=== PATIENT | male | born 1945 | race Caucasian/White ===

== ENCOUNTER 2018-05-04 10:30 | Observation (INO) ==
[2018-05-04] MEDS ORDERED: S2 RACEPINEPHRINE 2.25% ONE (11:09)
[2018-05-04] MEDS ORDERED: SOLU-MEDROL ONE (11:10)
[2018-05-04] MEDS ORDERED: ZANTAC IV ONE (11:14)
[2018-05-04] MEDS ORDERED: S2 RACEPINEPHRINE 2.25% INH ONE (11:15)
[2018-05-04] MEDS ORDERED: NS NEB INH SCH (11:15)
[2018-05-04] MEDS ORDERED: SOLU-MEDROL IV ONE (11:17)
[2018-05-04] MEDS ORDERED: CLARITIN PO ONE (11:17)
[2018-05-04] MEDS ORDERED: ZANTAC 50 MG in NS 50 ML IV ONE (11:30)
--- NOTE | 2018-05-04 14:26 | PROVIDER DOCUMENTATION ---
This chart was entered by Millie Streeter Scribe, acting as scribe for Willie Mason MD. HPI-General Adult - General Chief Complaint: Tongue Swelling Stated Complaint: ALLERGIC REACTION Time Seen by Provider: 05/04/18 10:50 Source: patient Allergies/Adverse Reactions: Patient Allergies Allergy/AdvReac Type Severity Reaction Status Date / Time metoclopramide HCl * Allergy Unknown ANAPHYLAXIS Verified 04/09/18 09:14 [From Reglan] KATHERIN Inhibitors AdvReac Intermediate ANGIOEDMA Verified 04/09/18 09:14 epinephrine AdvReac Unknown Verified 04/09/18 09:14 Home Medications: Home Medication List Medication Instructions Recorded Confirmed Last Taken Type Aspirin 81 mg PO QPM 12/28/12 04/09/18 04/07/18 08:00 History Carvedilol [Coreg] 12.5 mg PO BID 12/28/12 04/09/18 04/14/18 04:30 History Glipizide [Glucotrol] 10 mg PO BID 12/28/12 04/09/18 04/13/18 21:00 History Pravastatin Sodium [Pravachol] 80 mg PO QHS 12/28/12 04/09/18 04/13/18 21:00 History Chlorthalidone 25 mg PO QAM 08/10/14 04/09/18 04/13/18 08:00 History Metformin [Glucophage] 500 mg PO BID 08/10/14 04/09/18 04/13/18 21:00 History Sitagliptin Phosphate [Januvia] 100 mg PO QAM 01/14/18 04/09/18 04/13/18 08:00 History Hydrocodone/APAP 10 mg/325 mg 1 each PO Q4H PRN #12 tablet 04/14/18 Unknown Rx [[place]-10] Loratadine [Claritin] 10 mg PO BID #60 tab 05/04/18 Unknown Rx Prednisone 20 mg PO BID #10 tab 05/04/18 Unknown Rx - History of Present Illness -Gen Adult Nature of Presenting Problems: 73yom with hx diabetes Type 2, HTN c/o possible allergic reaction including sore throat, difficulty swallowing, swollen tongue, and swollen lips since last night that has worsened this morning. He reports pain of 2/10. The patient's reports he recently had surgery for prostate cancer. He denies fever, chills, nausea, vomiting, diarrhea, cp, and sob. The patient's is at bedside. Location of Pain/Injury: reports: other (possible allergic reaction including sore throat, difficulty swallowing, swollen tongue, and swollen lips) Pain Radiation: reports: no radiation Quality of Pain: reports: other ("painful") Severity: reports: mild Onset/Duration: reports: this morning (worsening), last night Timing: reports: still present, constant Context/Activities at Onset: reports: none Modifying Factors: improves with: nothing Associated Symptoms: denies: chest pain, fever/chills, nausea, shortness of breath, vomiting Similar Symptoms Previously?: No Recently seen or treated by another doctor?: No Review of Systems - Adult - REVIEW OF SYSTEMS - ADULT Constitutional: denies: chills, fever Eyes: denies: discharge, dry eyes Ears, Nose, Mouth & Throat: reports: other (possible allergic reaction including sore throat, difficulty swallowing, swollen tongue, and swollen lips) . denies: ear discharge, ear pain Cardiovascular: denies: chest pain, palpitations Respiratory: denies: cough, shortness of breath Gastrointestinal: denies: abdominal pain, diarrhea, nausea, vomiting Genitourinary: denies: dysuria, hematuria Musculoskeletal: denies: back pain, muscle aches, muscle weakness Integumentary: reports: no symptoms reported Neurological: denies: dizziness/vertigo, headache/migraines Psychiatric: reports: no symptoms reported Endocrine: reports: no symptoms reported Hematologic/Lymphatic: reports: no symptoms reported Allergic/Immunologic: reports: no symptoms reported All Other Systems: Reviewed and Negative Past History - Adult - PAST MEDICAL HISTORY-ADULT Review of Records: reports: Old Records Reviewed, Nursing Assessment Review, Medications Reviewed Cardiovascular: reports: HTN Endocrine/Immune: reports: Diabetes Diabetes Type: Type 2 Additional History: prostate cancer - PRIOR SURGERIES/PROCEDURES Surgical/Procedure History: reports: other (prostate) - IMMUNIZATION STATUS Childhood Immunizations: See Nurse Assessment Flu Vaccine: See Nurse Assessment - FAMILY HISTORY Family History: reviewed, not pertinent - SOCIAL HISTORY Smoking: other (former) Substance Use: denies Living Situation: family Physical Exam-General - PHYSICAL EXAM-ADULT Initial Vital Signs Reviewed: Yes - CONSTITUTIONAL General Appearance: alert, mild distress, other (difficulty speaking due to tongue swelling) - EYES Eyes: PERRL/EOMI, pink conjunctivae - HEAD, EARS, NOSE, MOUTH & THROAT HENMT: moist mucous membranes, angioedema, other (swollen tongue and swollen lips) - NECK Neck: non-tender, supple - RESPIRATORY Respiratory: lungs clear, normal breath sounds. negative: wheezing - CARDIOVASCULAR Cardiovascular: regular rate, rhythm, no murmur - GASTROINTESTINAL (ABDOMEN) Abdominal Exam: non tender, soft - MUSCULOSKELETAL Extremity: non-tender, no pedal edema - SKIN Integumentary: normal color, warm/dry - NEUROLOGIC Neurologic: grossly normal, no motor/sensory deficits - PSYCHIATRIC Psych/Mental Status: normal mood/affect, normal thought content, normal thought process, oriented x 3 Progress - PLAN OF CARE/RESULTS Progress/Plan/Lab Results: Vital Signs - 8 hr 05/04/18 10:42 Pulse Rate 77 Respiratory Rate 18 Blood Pressure 156/89 O2 Sat by Pulse Oximetry 100 - REASSESSMENT Reassessment #1 Time Reassessed: 14:19 Status: improving (Swelling seemss to be resolving and pt can now swollow and speak fairly clealy) Departure - Departure Date of Disposition Decision: 05/04/18 Time of Disposition Decision: 14:20 DIAGNOSIS: Idiopathic angioedema Qualifiers: Encounter type: initial encounter Qualified Code(s): T78.3XXA - Angioneurotic edema, initial encounter Disposition: HOME 01 Certified Medical Emergency: Emergent Condition: Stable Additional Freetext Instructions: ED Follow Up Instructions: You have been treated by a care provider in the Emergency Department. These instructions are being provided to you so you can have an understanding of how to care for yourself upon discharge. Upon discharge from the Emergency Department, you are responsible for making arrangements for follow-up care by a physician of your choice. Take all prescribed medications as directed. Return to the Emergency Department immediately for any new or worsening symptoms. You may call the Physician Referral phone number at [phone] to obtain a list of Physicians who are taking new patients. Prescriptions: Loratadine [Claritin] 10 mg PO BID #60 tab Prednisone 20 mg PO BID #10 tab Referrals and Follow-Ups: None,PCP [Primary Care Provider] - - Critical Care Note This patient required my direct & personal management of CC.: Yes Total Time (mins): 35 Critical Care Statement: This patient required my direct personal management to treat or rule out processes, the absence of which, could potentiallly result in sudden, clinically significant life or limb threatening deterioration. Attestation - Physician/ [facility] Attestation Patient care was provided by Advanced Practice Provider:: No The physician spent face to face time with patient:: Yes Advanced Practice Provider documentation review:: Supervising physician onsite and consulted in the evaluation and care of this patient. The physician did have a face to face encounter with the patient. This chart was documented by the indicated scribe, (Millie Streeter Scribe) and accurately reflects the services I performed and decisions made by me, Willie Mason MD, as attested by the provider's signature.
--- NOTE | 2018-05-04 16:49 | HISTORY AND PHYSICAL ---
HISTORY OF PRESENT ILLNESS: Mr. England was admitted on 05/04/2018. Apparently, he had robotic prostatectomy on Saturday, today is Saturday. I think he had an IV in the right hand. His right hand started itching. They gave him two medicines. He said there was some little streak that was going up his arm and so they put him on Bactrim Double Strength 1 twice a day and they gave him diclofenac to take 3 times a day. He started to have some swelling early this morning in his tongue and in his mouth. He is having trouble swallowing. They gave him an epi subcu. We gave him some Zantac and Solu-Medrol. Swelling is much better, but still having trouble swallowing and his tummy is still swollen. No urticaria or hives or rash appreciated. No fever or chills. He has had episodes of tongue swelling he said about 4 different times over the last 20 years. They have never really found any culprit. Initially, they wondered about lisinopril, but I think he has been off lisinopril for a long time. PAST MEDICAL HISTORY: He has history of asthma, history of benign prostatic hypertrophy, recently prostate cancer status post robotic prostatectomy, history of COPD, diabetes, gastroesophageal reflux disease, coronary artery disease, he is status post CABG 20 years ago, history of hypercholesterolemia, history of ureteral listhesis on the left or kidney stones. SURGICAL HISTORY: Status post CABG and then radical robotic prostatectomy done on Saturday. MEDICATIONS: He is on aspirin, Coreg, glipizide, metformin. ALLERGIES: He is not aware of anything he is allergic to. He did list epinephrine, I think that is because I have used it before and he was having trouble, but I do not know if he has a true allergic reaction. They did give it to him today. History of allergy to Reglan. FAMILY HISTORY: No significant family history that we are aware of. I think there are some family members with diabetes. SOCIAL HISTORY: He quit smoking 20 years ago. alcohol quit about 20 years ago. He never drank much. REVIEW OF SYSTEMS: No fever or chills.HEENT: Tongue swelling. Throat feels like it is swelling. No lymphadenopathy. No urticaria. No mucosal lesions. No change in visual or hearing acuity. Neck: Has been supple, no pain. No cervical or supraclavicular adenopathy. No irritation to the conjunctiva. Respiratory: No increased work of breathing or dyspnea. Cardiovascular: No chest pain or tachy palpitation. Gastrointestinal / Genitourinary: Unremarkable. Musculoskeletal/Neurologic: No significant complaints. PHYSICAL EXAMINATION: VITAL SIGNS: Afebrile. Pulse 77, respirations 20, blood pressure 156/89. He is on 2 L nasal cannula. Height 5 feet 9 inches. Weight 175 pounds. HEENT: Pupils are equal and round. Tongue is still a little bit swollen. Oropharynx with some edema. No stridor. Moving air fine. Having trouble swallowing. LUNGS: Clear in all lung vazquez. CARDIOVASCULAR: Regular rhythm and rate without murmur or S3. ABDOMEN: Soft. SKIN: Warm and dry. ASSESSMENT AND PLAN: 1. Angioedema. Not sure what triggered this. Of course, they had given him some Bactroban and some diclofenac, so we will hold those. He has received Zantac 50 mg IV, Methylprednisone. He got some epinephrine 2.25%. Give him some IV fluids, give him some Solu-Medrol. I will probably give him 80 mg of Solu-Medrol q.8. We will check pattern sugars. He does have diabetes. and we will give him some Zyrtec p.o. 10 mg now and then daily and use Benadryl if needed. 2. Diabetes mellitus type 2. We will check pattern of sugars. 3. History of coronary artery disease status post CABG 20 years ago. 4. Recent robotic prostatectomy. I will check some lab in the morning, thyroid, B12 and folate and recheck his chemistries, magnesium and give him fluids of normal saline, run it in at 85 mL an hour. cc: MD Michael Elam MD
[2018-05-04 17:12] LABS: BASO# 0.03 X1000 (0.0-0.2); BASO% 0.2 % (0.0-0.8); EOS# 0.89 X1000 (0.0-0.7); EOS% 6.4 % (0.0-10.0); HEMATOCRIT 47.1 % (42.0-52.0); HEMOGLOBIN 15.7 g/dL (14.0-18.0); IMM GRAN# 0.07 X1000 (0.0-0.04); IMM GRAN% 0.5 % (0.0-0.5); LYMPH# 1.91 X1000 (1.2-3.4); LYMPH% 13.7 % (20.5-51.1); MCH 28.6 PG (27-31); MCHC 33.3 g/dL (33-37); MCV 85.9 FL (81-99); MONO# 0.89 X1000 (0.11-0.59); MONO% 6.4 % (1.7-9.3); MPV 9.8 FL (7.4-10.4); NEUT% 72.8 % (42.2-75.2); PLT 570 X1000 (130-400); RBC 5.48 XMIL (4.7-6.1); RDW 13.9 % (11.5-14.5); WBC 13.99 X1000 (4.8-10.8)
[2018-05-04 17:49] LABS: ALB/GLOB RATIO 1.1; CALCIUM 9.3 mg/dL (8.8-10.2); CREATININE 3.3 mg/dL (0.7-1.2); TOTAL BILIRUBIN 0.27 mg/dL (0.20-1.00); TOTAL PROTEIN 7.5 g/dL (6.3-8.3)
[2018-05-04] MEDS ORDERED: ZOFRAN IV PRN (19:06)
[2018-05-04] MEDS ORDERED: TYLENOL PO PRN (19:06)
[2018-05-04] MEDS ORDERED: ASPIRIN PO SCH (21:00)
[2018-05-04] MEDS ORDERED: PRAVACHOL PO SCH (21:00)
[2018-05-04] MEDS: GLUCOPHAGE PO SCH (21:34)
[2018-05-04] MEDS: ZYRTEC PO SCH (21:34)
[2018-05-04] MEDS: SOLU-MEDROL IV SCH (21:34)
[2018-05-04] MEDS: COREG PO SCH (21:34)
[2018-05-04] MEDS: NS 1,000 ML IV SCH (21:35)
[2018-05-04] MEDS: GLUCOTROL PO SCH (21:37)
[2018-05-05] MEDS: SOLU-MEDROL IV SCH ×2 (04:42→13:16)
[2018-05-05 06:58] VITALS: BP 124/59
[2018-05-05 07:09] LABS: INR 1.02; PROTIME 14.3 Seconds (11.0-16.0)
[2018-05-05 07:10] LABS: PTT 29.4 Seconds (22.3-41.8)
[2018-05-05 07:26] LABS: BASO# 0.01 X1000 (0.0-0.2); BASO% 0.1 % (0.0-0.8); HEMATOCRIT 35.2 % (42.0-52.0); HEMOGLOBIN 12.1 g/dL (14.0-18.0); IMM GRAN# 0.04 X1000 (0.0-0.04); IMM GRAN% 0.3 % (0.0-0.5); LYMPH# 1.09 X1000 (1.2-3.4); LYMPH% 8.4 % (20.5-51.1); MCH 29.2 PG (27-31); MCHC 34.4 g/dL (33-37); MONO# 0.34 X1000 (0.11-0.59); MONO% 2.6 % (1.7-9.3); NEUT# 11.49 X1000 (1.4-6.5); NEUT% 88.6 % (42.2-75.2); PLT 309 X1000 (130-400); RBC 4.14 XMIL (4.7-6.1); WBC 12.97 X1000 (4.8-10.8)
[2018-05-05 07:35] LABS: ALB/GLOB RATIO 1.3; ALBUMIN 3.5 g/dL (3.5-5.0); C REACTIVE PROT QUANT 31.86 mg/L (0.00-5.00); CALCIUM 8.6 mg/dL (8.8-10.2); CREATININE 3.9 mg/dL (0.7-1.2); MAGNESIUM 1.6 mg/dL (1.5-2.7); POTASSIUM 4.6 mmol/L (3.5-5.1); TOTAL BILIRUBIN 0.18 mg/dL (0.20-1.00); TOTAL PROTEIN 6.3 g/dL (6.3-8.3)
[2018-05-05 07:43] LABS: T4 6.45 ug/dL (4.60-12.00); TSH 0.82 uIUmL (0.27-4.20)
[2018-05-05 07:44] LABS: LYMPHS 10 % (21-51); MONO 2 % (1-9); SEGS 88 % (42-75)
[2018-05-05 07:44] LABS: URINE SOURCE CLEAN CATCH
[2018-05-05 07:54] LABS: BILIRUBIN URINE NEGATIVE (NEGATIVE); BLOOD URINE TRACE (NEGATIVE); COLOR YELLOW; GLUCOSE URINE TRACE mg/dL (NEGATIVE); KETONE URINE TRACE mg/dL (NEGATIVE); LEUKOCYTES URINE NEGATIVE (NEGATIVE); NITRITE URINE NEGATIVE (NEGATIVE); PROTEIN URINE 30 mg/dL (NEGATIVE); SP GRAVITY URINE 1.017; TURBIDITY URINE CLEAR (CLEAR); UROBILINOGEN URINE NORMAL (NORMAL)
[2018-05-05] MEDS: ZYRTEC PO SCH (08:17)
[2018-05-05] MEDS: GLUCOPHAGE PO SCH (08:17)
[2018-05-05] MEDS: GLUCOTROL PO SCH (08:17)
[2018-05-05] MEDS: COREG PO SCH (08:18)
[2018-05-05 08:24] LABS: UR EPITHELIAL CELLS <10 /HPF (<10); URINE BACTERIA NEGATIVE /HPF; URINE RBC <10 /HPF (<10); URINE WBC <10 /HPF (<10)
[2018-05-05 08:25] LABS: URINE YEAST NONE SEEN
[2018-05-05] MEDS ORDERED: JANUVIA PO SCH (09:00)
[2018-05-05] MEDS ORDERED: HYGROTON PO SCH (09:00)
[2018-05-05] MEDS: NS 1,000 ML IV SCH (10:43)
--- NOTE | 2018-05-05 13:35 | DISCHARGE SUMMARY ---
ADMISSION DATE: 05/04/2018 DISCHARGE DATE: 05/05/2018 HOSPITAL COURSE: Mr. England is feeling much better. He is swallowing. His tongue is no longer swollen. His lips feel back to normal. He presented with angioedema of his tongue and lips. He did get some epinephrine. I put him on Solu-Medrol. He would like to go home. So I will let him go home. DISCHARGE INSTRUCTIONS: I will put him on a Medrol Dosepak and I will put him on Zyrtec as well 10 mg a day for another 2 weeks. We have not clearly identified medicine or an allergy. He was on Bactrim. He was also on diclofenac, but he has had swelling of his tongue in the past. I think four other episodes. He is not on any KATHERIN inhibitors, and so I do not see his home medications that he cannot continue to take, so I will put him on aspirin 81 mg a day. Coreg 12.5 b.i.d., chlorthalidone 25 mg a day, Glucotrol 10 mg twice a day. We will hold the Claritin and he will take Zyrtec 10 mg a day for another 2 weeks and then go back on his Claritin. He will go back on his metformin 1000 mg b.i.d., Pravachol 80 mg at bedtime, prednisone 20 mg b.i.d. (prednisone taper) and Januvia 100 mg daily. Follow up with his primary care. Note he recently had a robotic prostatectomy and is doing well from that standpoint. cc: Víctor Goncalves MD
== END 2018-05-05 13:35 | disposition home or self-care (01) ==
LOC: 3N 10:30 → ED 10:30
PROVIDERS: ATTEND Emergency Medicine
CPT/HCPCS: 80053; 81001; 82607; 82746; 82948; 83735; 84436; 84443; 85025; 85610; 85730; 86038; 86039; 86140; 94640; 94760; 94761; 96365; 96375; 99284; A9270; G0378; J2780; J2930; J7030; XXXXX

== ENCOUNTER 2019-07-02 20:18 | Inpatient (IN) ==
[2019-07-02] MEDS ORDERED: ASPIRIN PO ONE (20:30)
[2019-07-02] MEDS ORDERED: ASPIRIN PR ONE (20:30)
--- NOTE | 2019-07-02 20:36 | EKG Report ---
Test Performed on : 07/02/2019 8:19:50 PM Test Reason : Chest Pain Blood Pressure : / mmHG Vent. Rate : 072 BPM Atrial Rate : 072 BPM P-R Int : 136 ms QRS Dur : 072 ms QT Int : 416 ms P-R-T Axes : 012 044 239 degrees QTc Int : 455 ms Normal sinus rhythm. Nonspecific T wave abnormality Abnormal ECG When compared with ECG of 21-JAN-2018 14:52, Nonspecific T wave abnormality now evident in Inferior leads Nonspecific T wave abnormality now evident in Anterior leads Unconfirmed Result
--- NOTE | 2019-07-02 20:57 | Diag Imaging Result Doc PS360 ---
EXAM: CHEST-2 VIEWS - 07/02/2019 HISTORY: chest pain TECHNIQUE: Chest two views COMPARISON: 06/15/2016 FINDINGS: Heart size is normal. There are sternal wires from previous surgery again seen. There are possibly mild COPD changes. The lungs appear clear of acute changes. There is no pleural effusion or pneumothorax identified. IMPRESSION: No evidence of acute disease. Electronically signed by Brian Anna 07/02/2019 8:54 PM
[2019-07-02 22:06] LABS: BASO# 0.08 X1000 (0.0-0.2); BASO% 0.8 % (0.0-0.8); EOS% 3.1 % (0.0-10.0); HEMATOCRIT 44.8 % (42.0-52.0); HEMOGLOBIN 15.2 g/dL (14.0-18.0); LYMPH# 1.98 X1000 (1.2-3.4); LYMPH% 20.5 % (20.5-51.1); MCHC 33.9 g/dL (33-37); MCV 85.3 FL (81-99); MONO# 0.66 X1000 (0.11-0.59); MONO% 6.8 % (1.7-9.3); MPV 9.6 FL (7.4-10.4); NEUT# 6.64 X1000 (1.4-6.5); NEUT% 68.8 % (42.2-75.2); PLT 289 X1000 (130-400); RBC 5.25 XMIL (4.7-6.1); RDW 13.5 % (11.5-14.5); WBC 9.66 X1000 (4.8-10.8)
[2019-07-02 22:13] LABS: INR 0.92; PROTIME 12.4 Seconds (11.0-16.0)
[2019-07-02 22:14] LABS: PTT 27.7 Seconds (22.3-41.8)
[2019-07-02 22:43] LABS: AGAP 18; ALB/GLOB RATIO 1.5; ALBUMIN 4.6 g/dL (3.5-5.0); ALKALINE PHOSPHATASE 65 U/L (32-122); BUN 17 mg/dL (8-22); CHLORIDE 100 mmol/L (98-107); CK PROFILE 66 U/L (24-204); COSMO 294; ESTIMATED GFR > 60; GLUCOSE 227 mg/dL (70-104); GOT 18 U/L (10-34); GPT 20 U/L (10-44); SODIUM 143 mmol/L (136-145); TCO2 25 mmol/L (25-35); TOTAL BILIRUBIN 0.25 mg/dL (0.20-1.00); TOTAL PROTEIN 7.6 g/dL (6.3-8.3)
[2019-07-02] MEDS ORDERED: NORFLEX IM ONE (23:52)
[2019-07-03] MEDS ORDERED: ASPIRIN ONE (01:17)
--- NOTE | 2019-07-03 01:32 | PROVIDER DOCUMENTATION ---
This chart was entered by Monica Brewer Scribe, acting as scribe for Cande Wolf MD. HPI-Chest Pain - General Chief Complaint: Chest Pain Stated Complaint: CHEST PAIN, HX OF BYPASS Time Seen by Provider: 07/02/19 21:22 Source: patient Allergies/Adverse Reactions: Patient Allergies Allergy/AdvReac Type Severity Reaction Status Date / Time No Known Allergies Allergy Verified 05/22/18 12:53 Home Medications: Home Medication List Medication Instructions Recorded Confirmed Last Taken Type Carvedilol [Coreg] 12.5 mg PO BID 12/28/12 07/03/19 05/22/18 08:00 History 12.5 Pravastatin Sodium [Pravachol] 80 mg PO QHS 12/28/12 07/03/19 05/21/18 21:30 History 80 Metformin [Glucophage] 500 mg PO QAM 08/10/14 07/03/19 05/22/18 08:00 History 1000 Amlodipine Besylate 5 mg PO QAM 07/03/19 07/03/19 Unknown History Cyanocobalamin (Vitamin B-12) 1,000 mcg PO DAILY 07/03/19 07/03/19 Unknown History [Vitamin B12] Dulaglutide [Trulicity] 1 dose SQ ORDERED 07/03/19 07/03/19 Unknown History Levocetirizine Dihydrochloride 5 mg PO QAM 07/03/19 07/03/19 Unknown History [Xyzal] Metformin [Glucophage] 1,000 mg PO QHS 07/03/19 07/03/19 Unknown History Omeprazole 40 mg PO QHS 07/03/19 07/03/19 Unknown History - History of Present Illness-CP Nature of Presenting Problem: pt is a 74 yr old male presenting with complaint of upper central chest pain, onse tlast night changing throughout the day. pt admits pain began as left upper chest pain radiating to left arm, this am pain moved to right upper chest radiating down right arm, through the day pain is no longer radiating down arms and has become more central, pain is reproduced with palpation. Location: reports: central Chest Pain Radiation: reports: no radiation Quality of Pain: reports: aching Severity in ED: moderate Onset/Duration: last night Timing: still present, changing over time Context/Activities at Onset: reports: light activity Modifying Factors: improves with: palpation (reproduces pain). worse with: analgesics, movement Associated Symptoms: denies: abdominal pain, dizziness, fatigue, nausea, shortness of breath, vomiting Nitro Today/Relief: no nitro taken today Aspirin Treatment Today: no aspirin today Similar Symptoms Previously?: No Recently Seen Here or By Another Healthcare Provider: Yes (seen by Dr Cruz- cardiology 06/26/19) Review of Systems - Adult - REVIEW OF SYSTEMS - ADULT Constitutional: denies: chills, fever Eyes: reports: no symptoms reported Ears, Nose, Mouth & Throat: denies: ear pain, sinus problem, throat pain Cardiovascular: reports: chest pain. denies: palpitations, syncope Respiratory: reports: no symptoms reported Gastrointestinal: denies: abdominal pain, nausea, vomiting Genitourinary: denies: dysuria, frequency, flank pain Musculoskeletal: denies: back pain, joint pain, neck pain Integumentary: reports: no symptoms reported Neurological: denies: dizziness/vertigo, headache/migraines Psychiatric: reports: no symptoms reported Endocrine: reports: no symptoms reported Hematologic/Lymphatic: reports: no symptoms reported Allergic/Immunologic: reports: no symptoms reported All Other Systems: Reviewed and Negative Past History - Adult - PAST MEDICAL HISTORY-ADULT Review of Records: reports: Old Records Reviewed, Nursing Assessment Review, Medications Reviewed, Social history reviewed & non-contributory. Major Childhood Illnesses: reports: denies history Cardiovascular: reports: CAD, HTN, AR Respiratory: reports: denies history Gastrointestinal: reports: denies history Obstetrical/Gynecological: reports: denies history Genitourinary: reports: denies history Musculoskeletal: reports: denies history Neurological: reports: denies history Endocrine/Immune: reports: Diabetes Other Conditions: reports: denies history Additional History: prostate cancer - PRIOR SURGERIES/PROCEDURES Surgical/Procedure History: reports: CABG, cardiac stent, other (prostate) - IMMUNIZATION STATUS Childhood Immunizations: See Nurse Assessment Flu Vaccine: See Nurse Assessment - FAMILY HISTORY Family History: reviewed, not pertinent - SOCIAL HISTORY Smoking: quit greater than 1 year Substance Use: denies Living Situation: family Physical Exam-General - PHYSICAL EXAM-ADULT Initial Vital Signs Reviewed: Yes - CONSTITUTIONAL General Appearance: appears well, alert, no apparent distress - EYES Eyes: PERRL/EOMI - HEAD, EARS, NOSE, MOUTH & THROAT HENMT: normocephalic/atraumatic, moist mucous membranes, normal ENT inspection - NECK Neck: non-tender, full range of motion, supple, normal inspection - RESPIRATORY Respiratory: lungs clear, normal breath sounds, no respiratory distress, no accessory muscle use, other (left upper chest tenderness-pain reproduced on palpation) - CARDIOVASCULAR Cardiovascular: normal peripheral pulses, regular rate, rhythm - GASTROINTESTINAL (ABDOMEN) Abdominal Exam: normal bowel sounds, non tender, soft - LYMPHATIC Lymphatic: no adenopathy - MUSCULOSKELETAL Back Exam: normal inspection, no CVA tenderness, no vertebral tenderness Extremity: normal range of motion, non-tender, normal gait, normal inspection - SKIN Integumentary: normal color, normal turgor, warm/dry - NEUROLOGIC Neurologic: grossly normal, no motor/sensory deficits - PSYCHIATRIC Psych/Mental Status: normal mood/affect, normal thought content, normal thought process, oriented x 3 - HEART Score HEART Score: History: Slightly Suspicious HEART Score: ECG: Normal HEART Score: Age: > or = 65 Years HEART Score: Risk Factors for Atherosclerotic Disease: > or = 3 Risk Factors or History of Atherosclerotic Disease HEART Score: Troponin: 1-3x Normal Limit Total HEART Score:: 5 Progress - PLAN OF CARE/RESULTS Progress/Plan/Lab Results: Vital Signs - 8 hr 07/02/19 20:26 Temperature 98.0 F Pulse Rate 74 Respiratory Rate 19 Blood Pressure 168/85 O2 Sat by Pulse Oximetry 100 07/02/19 21:46 Influenza Screen - Final Nasopharyngeal Laboratory Results - last 24 hr 07/02/19 07/02/19 07/02/19 21:26 21:26 21:26 WBC RBC Hgb Hct MCV MCH MCHC RDW Std Deviation Plt Count MPV Immature Gran % (Auto) Neut % (Auto) Lymph % (Auto) Early % (Auto) Eos % (Auto) Baso % (Auto) Immature Gran # (Auto) Neut # (Auto) Lymph # (Auto) Early # (Auto) Eos # (Auto) Baso # (Auto) PT INR PTT (Actin FS) Sodium 143 Potassium 4.0 Chloride 100 Carbon Dioxide 25 Anion Gap 18 BUN 17 Creatinine 1.0 Estimated GFR/1.73 m2 > 60 BUN/Creatinine Ratio 17 Glucose 227 H Calculated Osmolality 294 Calcium 10.0 Total Bilirubin 0.25 AST 18 ALT 20 Alkaline Phosphatase 65 Creatine Kinase 66 Troponin T High Sens 72 H [id number]-[id number] Pept 486 H Total Protein 7.6 Albumin 4.6 Globulin 3.0 Albumin/Globulin Ratio 1.5 07/02/19 07/02/19 07/03/19 21:26 21:26 00:05 WBC 9.66 RBC 5.25 Hgb 15.2 Hct 44.8 MCV 85.3 MCH 29.0 MCHC 33.9 RDW Std Deviation 13.5 Plt Count 289 MPV 9.6 Immature Gran % (Auto) 0.0 Neut % (Auto) 68.8 Lymph % (Auto) 20.5 Early % (Auto) 6.8 Eos % (Auto) 3.1 Baso % (Auto) 0.8 Immature Gran # (Auto) 0.00 Neut # (Auto) 6.64 H Lymph # (Auto) 1.98 Early # (Auto) 0.66 H Eos # (Auto) 0.30 Baso # (Auto) 0.08 PT 12.4 INR 0.92 PTT (Actin FS) 27.7 Sodium Potassium Chloride Carbon Dioxide Anion Gap BUN Creatinine Estimated GFR/1.73 m2 BUN/Creatinine Ratio Glucose Calculated Osmolality Calcium Total Bilirubin AST ALT Alkaline Phosphatase Creatine Kinase 85 Troponin T High Sens [id number]-[id number]-Qozbsxmsqwj Pept Total Protein Albumin Globulin Albumin/Globulin Ratio 07/03/19 00:05 WBC RBC Hgb Hct MCV MCH MCHC RDW Std Deviation Plt Count MPV Immature Gran % (Auto) Neut % (Auto) Lymph % (Auto) Early % (Auto) Eos % (Auto) Baso % (Auto) Immature Gran # (Auto) Neut # (Auto) Lymph # (Auto) Early # (Auto) Eos # (Auto) Baso # (Auto) PT INR PTT (Actin FS) Sodium Potassium Chloride Carbon Dioxide Anion Gap BUN Creatinine Estimated GFR/1.73 m2 BUN/Creatinine Ratio Glucose Calculated Osmolality Calcium Total Bilirubin AST ALT Alkaline Phosphatase Creatine Kinase Troponin T High Sens 135 H* D [id number] Pept Total Protein Albumin Globulin Albumin/Globulin Ratio Orders Category Date Time Status Cardiac Monitoring DIRECTED Care 07/02/19 20:30 Active Oxygen Therapy- ED Nursing DIRECTED Care 07/02/19 20:30 Active Saline Loc NOW Care 07/02/19 20:30 Active CHEST-2 VIEWS [RAD] Stat Exams 07/02/19 20:30 Completed CBC WITH ELECTRONIC DIFF [HEME] Stat Lab 07/02/19 21:26 Completed CK PROFILE [SP CHEM] Stat Lab 07/02/19 21:26 Completed CK PROFILE [SP CHEM] Stat Lab 07/03/19 00:05 Completed COMPREHENSIVE METABOLIC PANEL [CHEM] Stat Lab 07/02/19 21:26 Completed INFLUENZA SCREEN A/B Stat Lab 07/02/19 21:46 Completed PRO B-NATRIURETIC PEPTIDE Stat Lab 07/02/19 21:26 Completed PROTIME WITH INR [COAG] Stat Lab 07/02/19 21:26 Completed PTT [COAG] Stat Lab 07/02/19 21:26 Completed TROPONIN T HIGH SENSITIVITY Stat Lab 07/02/19 21:26 Completed TROPONIN T HIGH SENSITIVITY Stat Lab 07/03/19 00:05 Completed Aspirin Med 07/02/19 20:30 Discontinued 300 mg RI NOW ONE Aspirin Med 07/03/19 01:17 Discontinued 325 mg .ROUTE .STK-MED ONE Aspirin Med 07/02/19 20:30 Discontinued 325 mg PO NOW ONE Orphenadrine [Norflex] Med 07/02/19 23:52 Discontinued 60 mg IM NOW ONE CP/SOB/Palp >45 yrs of Age Stat Oth 07/02/19 20:30 Ordered EKG [EKG] Stat Ther 07/02/19 20:30 Draft Pt's second troponin is elevated to 135; that, in addition to his HEART score of 5, his hx of failed stents and CABG, warrant further observation and trending of troponins; spoke with Dr. Leija who accepts the patient for admission. Result Diagrams: 07/02/19 21:26 07/02/19 21:26 - EKG 1 Time of EKG reading by physician:: 20:20 EKG Read and Signed by:: Puneet Long Rate: 72 Rhythm: sinus rhythm [place]: normal RI Interval: normal ST Wave: non-specific ST changes Prior EKG Comparison: no prior EKG - XRAY 1 XRAY Study: Chest Impression: Normal ( EXAM: CHEST-2 VIEWS - 07/02/2019 HISTORY: chest pain TECHNIQUE: Chest two views COMPARISON: 06/15/2016 FINDINGS: Heart size is normal. There are sternal wires from previous surgery again seen. There are possibly mild COPD changes. The lungs appear clear of acute changes. There is no pleural effusion or pneumothorax identified. IMPRESSION: No evidence of acute disease. Electronically signed by Brian Anna 07/02/2019 8:54 PM 07/02/192053 Interpreting Physician: Brian Anna MD Dictated Date/Time: 07/02/192052 cc: Puneet Long MD; Lamont Ponce MD) - CONSULTS/PCP/HOSPITALIST Notification #1 *Consult/PCP/Hospitalist*: Dr. Leija Time Discussed: 01:29 Consult Disposition: Admit Departure - Departure Date of Disposition Decision: 07/03/19 Time of Disposition Decision: 01:28 DIAGNOSIS: Chest pain due to coronary artery disease Disposition: ADMITTED INPATIENT 09 Certified Medical Emergency: Emergent Condition: Stable Referrals and Follow-Ups: Lamont Ponce MD [Primary Care Provider] - - Critical Care Note This patient required my direct & personal management of CC.: No Attestation - Physician/ [place] Attestation Patient care was provided by Advanced Practice Provider:: No The physician spent face to face time with patient:: Yes Advanced Practice Provider documentation review:: Supervising physician onsite and consulted in the evaluation and care of this patient. The physician did have a face to face encounter with the patient. This chart was documented by the indicated scribe, (Monica Brewer Scribe) and accurately reflects the services I performed and decisions made by me, Cande Wolf MD, as attested by the provider's signature.
[2019-07-03 02:22] LABS: HEMOGLOBIN A1C 6.7 % (4.8-6.0)
[2019-07-03] MEDS ORDERED: ZOFRAN IV PRN (04:49)
[2019-07-03] MEDS ORDERED: TYLENOL PO PRN (04:49)
[2019-07-03] MEDS ORDERED: MORPHINE IV PRN (04:49)
[2019-07-03] MEDS: HUMULIN R SUBQ SCH ×3 (06:27→16:32)
--- NOTE | 2019-07-03 07:03 | HISTORY AND PHYSICAL ---
PRIMARY CARE PROVIDER: Dr. Lamont Ponce. DATE AND TIME: 07/03/2019 at 0220. CHIEF COMPLAINT: Chest pain. HISTORY OF PRESENT ILLNESS: Mr. Muir is a 74-year-old male who presented to the ER earlier in the evening on July 01 with complaints of chest pain. The patient actually states that his chest pain initially started approximately 24 hours ago, on the morning of July 01 at 2 a.m. He states that the chest pain woke him up out of his sleep. He did adjust his CPAP settings and turn the heat up. He reported that his chest pain got better. He did fall back asleep, though it started back at 5 a.m. He stated that this episode resolved though it did start back that evening at 7 p.m. and was very intense at a 7/10 pain. The patient states, when asked to describe how the pain felt, that it just hurt really bad. He did report that on each episode when his chest pain came on that it did last about an hour and then would subside on its own. He does report that the chest pain started in his left chest and did radiate across his chest to the left around to his back and down his left arm. The patient did report a left upper arm injury/pulled muscle that occurred 1 month ago that he has still been having some left upper arm soreness, though the chest pain in his chest upon palpation was not reproducible. He denies any headache, dizziness, near syncope, or syncope. He denies any shortness of breath at present though has reported that he does have some exertional dyspnea when walking up stairs or doing strenuous activities. He states this has been going on for a while and is not of new onset. He denies any chest pain at present. He does report that he has had a cough with some yellowish colored sputum and that he did have upper respiratory infection a few weeks ago, but states that he does feel better. He denies any fever, body aches, or chills. He denies any abdominal pain, nausea, or vomiting. He does report some occasional diarrhea, though states this has been going on since he has been taking metformin and actually has made adjustments to his metformin dosage secondary to this. He denies any dysuria. He denies any pain, numbness, tingling, or swelling in his extremities. The patient states that he actually did see his kitchen porter, Dr. Youssef, with the [facility], within the last week or so, though they did not make any changes to any of his medications. He reports that he got a good report from Dr. Youssef. Upon evaluation in the ER, the patient's initial EKG did show normal sinus rhythm, with nonspecific T-wave abnormality. Repeat EKG did show normal sinus rhythm with a T-wave abnormality as well. The only change noted was inverted T-wave now in V2 that was not present previously. The patient's initial troponin was 72, with a repeat of 135. At this time the patient will be admitted inpatient admission for further evaluation of his chest pain. REVIEW OF SYSTEMS: A 14-point review of systems was conducted with the patient and all were negative except for pertinent positives mentioned in the HPI. PAST MEDICAL HISTORY: 1. COPD. 2. Asthma. 3. History of BPH. 4. History of prostate cancer, status post robotic prostatectomy. 5. Diabetes mellitus, type 2. 6. Gastroesophageal reflux disease. 7. Coronary artery disease, status post stent placement with subsequent 2-vessel coronary artery bypass graft approximately 21 years ago. 8. Hyperlipidemia. 9. History of kidney stones. PAST SURGICAL HISTORY: 1. Two-vessel coronary artery bypass graft approximately 21 years ago. 2. Radical robotic prostatectomy. 3. Lithotripsy. 4. Cholecystectomy. SOCIAL HISTORY: The patient is a former smoker. He quit smoking 20 years ago though prior to this he did smoke 2 packs per day since he was in his 20s for a period of over 30 years. He previously did report alcohol use on the weekends though states he has not had any alcohol for quite some time. There is no known illicit drug use. The patient is retired. FAMILY HISTORY: Positive for his mother having a history of multiple sclerosis. He is not aware of his father having any known medical problems. The patient is a triplet. He does have 2 other sisters, 1 of which is living and the other, who is , though from what I gather from the patient it was secondary to noncompliance to medical conditions. ALLERGIES: The patient has no reported allergies though does have a history of being admitted more than once previously for angioedema. The patient did previously take a KATHERIN inhibitor and has had reported severe allergic reaction to another unknown medicine. HOME MEDICATIONS: 1. Amlodipine 5 mg p.o. q.a.m. 2. Coreg 12.5 mg p.o. b.i.d. 3. Vitamin B12 1,000 mcg p.o. daily. 4. Trulicity 1 dose subcu as directed. 5. Xyzal 5 mg p.o. q.a.m. 6. Metformin 500 mg p.o. q.a.m. 7. Metformin 100 mg p.o. at bedtime. 8. Omeprazole 40 mg p.o. at bedtime. 9. Pravachol 80 mg p.o. at bedtime. 10. Aspirin 81 mg p.o. daily. DIAGNOSTIC DATA: White blood cell count is 9,660, hemoglobin 15.2, hematocrit 44.8, platelet count is 289,000. PT 12.4, INR 0.92, PTT is 27.7. Sodium 143, potassium 4, chloride 100, serum bicarb is 25, BUN 17, creatinine 1, with a GFR greater than 60. Glucose 227, with a repeat fingerstick of 127. Hemoglobin A1c is 6.7. Calcium 10. Liver function tests within normal limits. CK initial 66 with a repeat of 85. Troponin TI sensitivity initial 72 with a repeat of 135. ProBNP is 486. EKG, initial, showed normal sinus rhythm with nonspecific T-wave abnormality at a rate of 72. Repeat EKG did show normal sinus rhythm, as well at a rate of 66. Only change noted compared to previous was inverted T-waves in V2. Chest x-ray showed no acute abnormalities. There was some possibly mild COPD changes noted. This is per Radiology. PHYSICAL EXAMINATION: VITAL SIGNS: Temperature 97.8 degrees, heart rate 67, respirations 18, blood pressure is 156/72, oxygen saturation is 97% on room air. GENERAL: Mr. Muir is a very pleasant, 74-year-old, male, who is resting in the ER stretcher. He is in no acute distress. He is awake, alert, and able to answer questions appropriately. HEENT: Head is atraumatic, normocephalic. Pupils are equal, round, and reactive to light, were 3 mm bilaterally and brisk. Oral mucosa was moist. Oropharynx was clear. NECK: Supple. Trachea midline. CARDIOVASCULAR: Patient has S1-S2 present. No murmurs, gallops, or rubs appreciated, with a regular rate and rhythm. PULMONARY: The patient has symmetrical chest expansion bilaterally. Lung sounds are clear to auscultation, bilateral full vazquez. ABDOMEN: Soft, nontender. Does not appear to be distended. The patient does have a protuberant abdomen noted. Bowel sounds are present in all 4 quadrants, were normoactive. EXTREMITIES: No cyanosis noted. The patient did have very slight trace edema noted in bilateral lower extremities at the level of the ankle down. Though pulse motor and sensory were intact in all extremities, radial and pedal pulses were 2+ bilaterally. INTEGUMENTARY: The patient's skin is pink, warm, and dry. NEUROLOGICAL: The patient is alert and oriented to person, place, time, situation. He is able to move all extremities. There are no focal neurological deficits noted. ASSESSMENT AND PLAN: 1. Chest pain. For further evaluation of this, we will continue with a series of cardiac enzymes. We will repeat EKG in the morning. We have also ordered echocardiogram. The patient reports that it had been several years since he has had a heart catheterization. He did receive a 325 mg aspirin in the ER. We will continue with his regularly prescribed 81 mg aspirin daily. The patient is not reporting any chest pain at present. Vital signs are stable. He will be placed on the medical floor with telemetry. Vital signs q.4 hours. We have placed a consult with Dr. Fields with cardiology. We will await their evaluation and further recommendations for management. 2. History of coronary artery disease, status post stent placement and 2-vessel coronary artery bypass graft. We will continue treatment as above #1. 3. Hypertension. We have continued the patient's regularly prescribed antihypertensive medications of amlodipine and Coreg. 4. Hyperlipidemia. We will continue his pravastatin. We have placed orders for lipid profile this morning. 5. Diabetes mellitus type 2. We are holding the patient's metformin and Trulicity at this time. We will place him on pattern fingerstick blood sugars with a sliding scale insulin per low- dose protocol. 6. History of COPD. The patient is not exhibiting any respiratory symptoms at this time. We will continue with supplemental oxygen as needed. We will continue to monitor. 7. Deep vein thrombosis prophylaxis will be provided with sequential compression devices. The patient has been placed on medical floor, telemetry. We will do vital signs q.4 hours. He will be NPO until evaluated by Cardiology in the morning. Further orders and recommendations pending hospital course, diagnostic studies, and physician evaluation. Dictated by ROSITA Breen for Gerard Leija MD cc: MD Lamont Campa MD [facility]ITAL[facility]
[2019-07-03 08:10] LABS: AGAP 13; BUN 16 mg/dL (8-22); CALCIUM 9.3 mg/dL (8.8-10.2); CHLORIDE 100 mmol/L (98-107); COSMO 287; ESTIMATED GFR > 60; GLUCOSE 173 mg/dL (70-104); POTASSIUM 4.2 mmol/L (3.5-5.1); SODIUM 141 mmol/L (136-145); TCO2 28 mmol/L (25-35)
[2019-07-03 08:20] LABS: CK PROFILE 181 U/L (24-204)
[2019-07-03] MEDS ORDERED: ZYRTEC PO SCH (09:00)
[2019-07-03] MEDS ORDERED: NORVASC PO SCH (09:00)
[2019-07-03] MEDS ORDERED: COREG PO SCH (09:00)
[2019-07-03] MEDS ORDERED: ASPIRIN PO SCH (09:00)
[2019-07-03] MEDS ORDERED: LEXISCAN ONE (11:43)
[2019-07-03] MEDS ORDERED: LOVENOX SUBQ SCH (12:00)
--- NOTE | 2019-07-03 12:59 | ECHO REPORT ---
ORDER DATE: 07/03/2019 INDICATION: Chest pain, history of coronary artery disease, COPD, bypass. FINDINGS: 1. The right atrium appears normal in size at 3.3 cm. 2. Mild tricuspid regurgitation, RV systolic pressure of 21. 3. Normal RV size and systolic function. 4. Trace pulmonic insufficiency. 5. Normal left atrial size with a volume index of 21. 6. No mitral prolapse. Mild mitral regurgitation. No mitral stenosis. 7. Normal LV size, end-diastolic dimension of 4.9 cm. Normal wall thicknesses with a posterior and interventricular septal wall thickness of 0.8 cm each. Borderline normal LV systolic function with an estimated ejection fraction of 50%. 8. Aortic valve opens well. It is trileaflet. No evidence of stenosis or insufficiency. 9. The aorta appears normal in visualized segments. 10. No pericardial effusion seen. 11. Indeterminate diastolic function. cc: Kodak Fields MD
--- NOTE | 2019-07-03 13:49 | Diag Imaging Result Document ---
PROCEDURE NAME: MYOCARDIAL PERF SCAN, STR/REST - 07/03/2019 MYOCARDIAL PERFUSION SCAN: INDICATION: Chest pain, coronary disease, history of bypass. PROCEDURES PERFORMED: 1. Lexiscan stress. 2. One-day stress/rest myocardial perfusion imaging (rest dose 12.6 millicuries, stress dose 36.9 mCi). FINDINGS: LEXISCAN STRESS RESULTS: 1. Baseline EKG shows sinus rhythm. 2. Lexiscan stress did not demonstrate any clear evidence of ischemic-related EKG changes or significant arrhythmias. PERFUSION IMAGING RESULTS: 1. No evidence of abnormal extracardiac uptake. 2. TID ratio is 0.98. 3. Perfusion imaging demonstrates a large-sized defect involving the anterior apical, mid anterior, basal anterior and portions of the anterior septal and anterior lateral. This defect is predominantly fixed; however, it does worsen on stress suggesting yrn-infarct ischemia. It is severe in intensity on stress, again with some associated yrn-infarct ischemia. The sum stress score is 20, sum rest score is 11. 4. Normal ejection fraction at stress of 66%. Rest EF of 58%. The end-diastolic volume on stress is 104, end systolic volume 35. There are anterior and anterior septal wall motion abnormalities noted. cc: MD iJe Huitron PA
[2019-07-03 15:26] VITALS: BP 126/63
--- NOTE | 2019-07-03 16:27 | PROGRESS NOTE ---
DATE: 07/03/2019 SUBJECTIVE: I have seen and examined Mr. England. He refers to be doing a lot better now. No more chest pain. He still has some pain in the left arm from a previous trauma, but otherwise no new complaints. OBJECTIVE: Vital signs: Blood pressure is 144/73, pulse of 73, respirations 18, temperature 98 degrees. General: Mr. England is a 74-year-old elderly gentleman. He is in bed. No distress mucosa is pink and moist. Anicteric. Acyanotic. Neck: Supple. Chest: Clear to auscultation. No crepitations. No rhonchi. Cardiovascular: Regular rate and rhythm. No murmurs, no rubs, no gallops. There is an old sternotomy scar on the anterior chest wall. Gastrointestinal: Abdomen is oft, nontender. Bowel sounds present. Extremities: No pedal edema. Central Nervous System: Patient is awake, alert, and oriented. LABORATORY DATA: Has all been reviewed. The patient's troponins have been increasing. IMAGING STUDIES: Echocardiogram showed ejection fraction of 50%. A stress test showed a large sized defect involving the anterior apical and anterior basal anterior and portions of the anterior septal anterior lateral that all seems to be predominantly fixed. However, there is a mention of a yrn-infarct ischemia. ASSESSMENT: 1. Chest pain with elevated troponins and abnormal stress tests all concerning for non STEMI. Mr. England has history of coronary artery disease status post coronary artery disease status in the past. He has been started back on his home medications. He is also on therapeutic Lovenox and will be waiting on Cardiology to evaluate the current stress test result and decide if they are going to do any further testing. 2. History of coronary artery disease status post coronary artery disease status noted. 3. Hypertension controlled. 4. Dyslipidemia. 5. Diabetes mellitus. The patient was on Trulicity and metformin at home. His A1c is 6.7. We will use insulin during the hospital course and transition him to his home medicines once he is ready for discharge. cc: Boubacar Horner MD
--- NOTE | 2019-07-03 17:33 | CARDIOLOGY CONSULTATION ---
DATE: 07/03/2019 CONSULTATION REQUESTED BY: Hospitalist service. PRIMARY CARE PHYSICIAN: Dr. Lamont Ponce PRIMARY BELLY DANCER: [facility] [place]. CHIEF COMPLAINT: Chest pain. HISTORY: Mr. Muir presents to the emergency room department on July 01 with a complaint of a day or 2 of recurrent left and right anterior chest pain. The pain seems to migrate intermittently. In addition, he said that for about 3 or 4 weeks prior to that he had been experiencing an achiness in the left upper arm. This pain got really intense and he was worried. Upon presentation, he was given the standard aspirin and eventually the pain subsided. He has been given morphine and has been placed on his usual medications. The patient's cardiac enzymes showed a CPK initially of 66, then went up to 85 and then 181 this morning. His troponin has sensitivity started out at 72, went up to 135 and then 153 ng/L. His lipid panel shows a cholesterol 107, LDL 53, HDL of 31. BUN creatinine are normal. The patient is feeling better this morning. He has been scheduled for stress test. PAST MEDICAL HISTORY: Positive for severe coronary heart disease. He underwent a 3 vessel coronary bypass procedure in [address] Ethan Lee in [place]. He received a vein graft to ramus intermedius, a vein graft to posterior descending branch of coronary artery, right coronary artery and a left mammary artery unfortunately was not used to bypass the LAD because the vessel was too deep intramyocardial. The patient has diabetes mellitus type 2, kidney stones, hyperlipidemia, and obstructive sleep apnea. He is sleeping with his CPAP mask. PAST SURGICAL HISTORY: Prostatectomy, lithotripsy, cholecystectomy. SOCIAL HISTORY: He has been for more than 56 years. He has 1 child. He retired from the police department. FAMILY HISTORY: Positive for heart disease. HOME MEDICATIONS: At this time include amlodipine 5 mg daily, carvedilol 12.5 twice a day. Trulicity weekly, Xyzal 5 mg daily, metformin 500 in the morning, 1000 in the evening, omeprazole 40 mg at bedtime. ALLERGIES: Negative. REVIEW OF SYSTEMS: The patient states that over the course of the past few months, his mobility has really been limited. He has issues with balance. He has also bilateral knee arthritis. He says that he can only walk no more than 50 yards before he has to stop. In fact, going to his basement, he can only do it twice then he has to make a stop. That will be like 2 flights of stairs tops. He has been feeling like that for a while. The patient has not had any recent stress test. The last heart catheterization was done back in 2009. His diabetes, seemingly has been well controlled since his hemoglobin A1c today 6.7%. ProBNP was 486 pg/mL That is only minimally elevated. PHYSICAL EXAMINATION: Vital signs: Blood pressure 156/72, pulse 67, temperature 97.8 degrees, respirations 18. He is awake, alert, oriented, in no distress. HEENT: Normal. Chest: Sounds clear to auscultation and percussion. On the chest, he does have a scar of the sternotomy, which is well healed. The sternum is stable. Heart: Sounds are regular and rhythmic. I do not hear a gallop or murmur. Abdomen: Nontender. Extremities: Extremities show decreased pulses. I do not find any significant pulses distally. There is no peripheral edema. There is some rash in the right leg. He says that it comes and goes. He says he has some sort of contact dermatitis. Neurological: Normal. BLOOD WORK: White cell count is normal. Hemoglobin 15.2, hematocrit 44.8, platelet count 289,000. Sodium 141, potassium 4.2, BUN and creatinine normal. IMPRESSION: 1. Patient presented with chest pain and elevation in troponin level. EKG on admission shows sinus rhythm with a nonspecific T-wave in the lateral leads. This is consistent with a non ST elevation myocardial infarction/acute coronary syndrome. 2. Severe coronary heart disease previous double bypass with inability to revascularize the LAD. 3. Diabetes mellitus long-term. 4. Sleep apnea syndrome. 5. A reported history of chronic obstructive pulmonary disease and gastroesophageal reflux disease. RECOMMENDATION: At this time, we will proceed with nuclear stress test. They have also ordered an echocardiogram. We will review the results of those tests and we will offer further advice. The patient more than likely is going to require some sort of imaging study to reassess his coronary circulation. Further advice will be forthcoming. cc: Getachew Choudhury MD
[2019-07-03] MEDS ORDERED: PRILOSEC PO SCH (21:00)
[2019-07-03] MEDS ORDERED: PRAVACHOL PO SCH (21:00)
--- NOTE | 2019-07-04 00:29 | DISCHARGE SUMMARY ---
ADMISSION DATE: 07/03/2019 DISCHARGE DATE: 07/03/2019 DISPOSITION: Home. FOLLOWUP: 1. Dr. Lamont Ponce. 2. Dr. Romero. 3. Dr. Choudhury. CONSULTATION DURING THIS ADMISSION: Cardiology was consulted. The patient was seen by Dr. Choudhury. INVASIVE PROCEDURES DONE DURING THIS ADMISSION: None. IMAGING STUDIES OF SIGNIFICANCE: 1. A chest x-ray showed no evidence of acute disease. 2. Echocardiogram showed an ejection fraction of 50%. 3. Myocardial perfusion scan shows a large-size defect in the anterolateral, mainly fixed. However, there was some suggestion of yrn-infarct ischemia. ADMISSION DIAGNOSES: 1. Chest pain. 2. History of coronary artery disease. 3. Diabetes mellitus. 4. History of chronic obstructive pulmonary disease. DIAGNOSES AT THE TIME OF DISCHARGE: 1. Chest pain on admission secondary to non-ST elevation myocardial infarction. 2. History of coronary artery disease status post coronary artery bypass graft (CABG) with abnormal stress test. However, Cardiology thinks the reversibility is not enough to warrant any further evaluation. 3. Hypertension. 4. Dyslipidemia. 5. Diabetes mellitus. DISCHARGE MEDICATIONS: 1. Pravastatin 80 mg p.o. daily. 2. Carvedilol 12.5 b.i.d. 3. Metformin 500 p.o. q.a.m. 4. Amlodipine 5 mg p.o. q.a.m. 5. Metformin 1000 p.o. at bedtime. 6. Aspirin 81 mg p.o. daily. 7. Trulicity 1 injection every week. 8. Omeprazole 40 mg p.o. at bedtime. PRESENTING COMPLAINT: Chest pain. HISTORY OF PRESENTING COMPLAINT: Mr. England is a 74-year-old male who has a history of coronary artery disease status post CABG, presented to the emergency room because of chest pain of acute onset. He was evaluated. Initially his troponin was 72. EKG did not show any acute changes. He was admitted for chest pain to rule out. During the hospital course, his troponin continued to increase, went up to 135 and then 153. He was evaluated by Cardiology. Both echocardiogram and stress test were done. His stress test was very remarkable for a large defect in the anterolateral region with some yrn-infarct ischemia. I was called by the Cardiology Team, in this case specifically by Ms. Riggins, who is the PA with the Cardiology Team, and told me that they have discussed the case, that she and Dr. Fields, and that they think that most of the lesion is just scar tissue and that there is really nothing significant to warrant any further studies and that Mr. England is on adequate medication at this time and just to put him back on his medication and let him follow up with his primary mash grinder. I have communicated this information to Mr. England in the presence of his . Mr. England this morning, at this point, denies any chest pain. He feels great. He does not have any residual chest pain. I think he is stable enough to be discharged. CURRENT VITALS: Blood pressure is 126/63, his pulse 84, respiration is 20, temperature 97.2 degrees. TIME SPENT FOR DISCHARGE: 38 minutes. cc: Boubacar Horner MD MTDD
== END 2019-07-03 16:59 | disposition home or self-care (01) | DRG 282 ==
LOC: ED 20:18 → 3N 07-03 04:13 → SUATTDRO 07-03 04:13
PROVIDERS: ATTEND Internal Medicine

== ENCOUNTER 2019-07-04 16:25 | Inpatient (IN) ==
[2019-07-04] MEDS ORDERED: ASPIRIN PO ONE (16:33)
--- NOTE | 2019-07-04 16:45 | EKG Report ---
Test Performed on : 07/04/2019 4:32:18 PM Test Reason : cp Blood Pressure : / mmHG Vent. Rate : 073 BPM Atrial Rate : 073 BPM P-R Int : 118 ms QRS Dur : 076 ms QT Int : 416 ms P-R-T Axes : 007 029 145 degrees QTc Int : 458 ms Normal sinus rhythm. ST & T wave abnormality, consider lateral ischemia Abnormal ECG When compared with ECG of 03-JUL-2019 01:36, (Unconfirmed) No significant change was found Unconfirmed Result
--- NOTE | 2019-07-04 16:54 | Diag Imaging Result Doc PS360 ---
EXAM: CHEST-2 VIEWS 07/04/2019 HISTORY: cp TECHNIQUE: PA and lateral chest COMMENT: There is no evidence of acute cardiac or pulmonary disease. Compared to 07/02/2019 there has been no significant change. IMPRESSION: No evidence of acute disease. Electronically signed by Johnny Lino 07/04/2019 4:52 PM
[2019-07-04 17:07] LABS: AGAP 14; ALB/GLOB RATIO 1.9; ALBUMIN 4.9 g/dL (3.5-5.0); ALKALINE PHOSPHATASE 76 U/L (32-122); BUN 16 mg/dL (8-22); CALCIUM 10.1 mg/dL (8.8-10.2); CHLORIDE 99 mmol/L (98-107); CK PROFILE 114 U/L (24-204); COSMO 284; CREATININE 1.1 mg/dL (0.7-1.2); ESTIMATED GFR > 60; GLUCOSE 198 mg/dL (70-104); GOT 22 U/L (10-34); GPT 22 U/L (10-44); POTASSIUM 4.9 mmol/L (3.5-5.1); SODIUM 139 mmol/L (136-145); TCO2 26 mmol/L (25-35); TOTAL BILIRUBIN 0.26 mg/dL (0.20-1.00); TOTAL PROTEIN 7.5 g/dL (6.3-8.3)
[2019-07-04 17:09] LABS: BASO# 0.06 X1000 (0.0-0.2); BASO% 0.5 % (0.0-0.8); EOS# 0.22 X1000 (0.0-0.7); EOS% 1.9 % (0.0-10.0); HEMATOCRIT 45.8 % (42.0-52.0); HEMOGLOBIN 15.7 g/dL (14.0-18.0); IMM GRAN# 0.02 X1000 (0.0-0.04); IMM GRAN% 0.2 % (0.0-0.5); LYMPH# 2.24 X1000 (1.2-3.4); LYMPH% 19.7 % (20.5-51.1); MCH 29.1 PG (27-31); MCHC 34.3 g/dL (33-37); MCV 84.8 FL (81-99); MONO# 0.78 X1000 (0.11-0.59); MONO% 6.9 % (1.7-9.3); MPV 9.6 FL (7.4-10.4); NEUT# 8.03 X1000 (1.4-6.5); NEUT% 70.8 % (42.2-75.2); PLT 289 X1000 (130-400); RDW 13.4 % (11.5-14.5); WBC 11.35 X1000 (4.8-10.8)
[2019-07-04 17:21] LABS: INR 0.93; PROTIME 12.6 Seconds (11.0-16.0)
[2019-07-04 17:22] LABS: PTT 31.4 Seconds (22.3-41.8)
--- NOTE | 2019-07-04 19:37 | PROVIDER DOCUMENTATION ---
HPI-General Adult - General Chief Complaint: Chest Pain Stated Complaint: CP HEART PT Time Seen by Provider: 07/04/19 18:27 Source: patient Allergies/Adverse Reactions: Patient Allergies Allergy/AdvReac Type Severity Reaction Status Date / Time No Known Allergies Allergy Verified 07/04/19 18:35 Home Medications: Home Medication List Medication Instructions Recorded Confirmed Last Taken Type Carvedilol [Coreg] 12.5 mg PO BID 12/28/12 07/04/19 07/04/19 History Pravastatin Sodium [Pravachol] 80 mg PO QHS 12/28/12 07/04/19 07/04/19 History Metformin [Glucophage] 500 mg PO QAM 08/10/14 07/04/19 07/04/19 History Amlodipine Besylate 5 mg PO QAM 07/03/19 07/04/19 07/04/19 History Aspirin 81 mg PO DAILY chewtab 07/03/19 07/04/19 07/04/19 Rx Cyanocobalamin (Vitamin B-12) 1,000 mcg PO DAILY 07/03/19 07/04/19 07/04/19 History [Vitamin B12] Dulaglutide [Trulicity] 1 dose SQ ORDERED 07/03/19 07/04/19 06/29/19 History Levocetirizine Dihydrochloride 5 mg PO QAM 07/03/19 07/04/19 07/04/19 History [Xyzal] Metformin [Glucophage] 1,000 mg PO QHS 07/03/19 07/04/19 1 Day Ago History ~07/03/19 Omeprazole 40 mg PO QHS 07/03/19 07/04/19 1 Day Ago History ~07/03/19 - History of Present Illness -Gen Adult Nature of Presenting Problems: 74yo male with PMH of cardiac bipass and recent discharge for NSTEMI presents with CC of chest pain that radiates across his chest and is associated with arm heaviness and pain across his back. The pain is intermitent and associated with nausea and has been ongoing over the last month. The pt denies any fevers, bleeding, swelling. The pt does reports some shortness of breath. Review of Systems - Adult - REVIEW OF SYSTEMS - ADULT Constitutional: reports: no symptoms reported. denies: fever Eyes: reports: no symptoms reported. denies: eye pain Ears, Nose, Mouth & Throat: reports: no symptoms reported. denies: throat pain Cardiovascular: reports: see HPI, chest pain Respiratory: reports: shortness of breath Gastrointestinal: reports: nausea. denies: abdominal pain Genitourinary: reports: no symptoms reported. denies: flank pain Musculoskeletal: reports: back pain Integumentary: reports: no symptoms reported Neurological: reports: no symptoms reported. denies: headache/migraines Psychiatric: reports: no symptoms reported. denies: alcohol/drug dependence Endocrine: reports: no symptoms reported Hematologic/Lymphatic: reports: no symptoms reported Allergic/Immunologic: reports: no symptoms reported Past History - Adult - PAST MEDICAL HISTORY-ADULT Review of Records: reports: Old Records Reviewed Major Childhood Illnesses: reports: denies history Cardiovascular: reports: CAD, HTN, ME, other (Cardiac bipass, recent NSTEMI) Respiratory: reports: denies history Gastrointestinal: reports: denies history Obstetrical/Gynecological: reports: denies history Genitourinary: reports: denies history Musculoskeletal: reports: denies history Neurological: reports: denies history Endocrine/Immune: reports: Diabetes Other Conditions: reports: denies history Additional History: prostate cancer - PRIOR SURGERIES/PROCEDURES Surgical/Procedure History: reports: other (prostate) - IMMUNIZATION STATUS Childhood Immunizations: See Nurse Assessment Flu Vaccine: See Nurse Assessment - FAMILY HISTORY Family History: reviewed, not pertinent - SOCIAL HISTORY Smoking: denies Substance Use: none/never Alcohol Use Frequency: never Physical Exam-General - PHYSICAL EXAM-ADULT Initial Vital Signs Reviewed: Yes - CONSTITUTIONAL General Appearance: appears well, alert, no apparent distress - EYES Eyes: negative: conjuctival exudate, photophobia, sclera injected, scleral icterus - HEAD, EARS, NOSE, MOUTH & THROAT HENMT: normocephalic/atraumatic, moist mucous membranes, pharynx normal - NECK Neck: non-tender, supple - RESPIRATORY Respiratory: lungs clear, no respiratory distress - CARDIOVASCULAR Cardiovascular: regular rate, rhythm, no edema - GASTROINTESTINAL (ABDOMEN) Abdominal Exam: soft, tenderness (mild diffuse). negative: rebound - MUSCULOSKELETAL Extremity: non-tender. negative: deformity, swelling - SKIN Integumentary: normal color, warm/dry. negative: cyanosis, diaphoresis, jaundice - NEUROLOGIC Neurologic: grossly normal - PSYCHIATRIC Psych/Mental Status: normal mood/affect, normal thought content, normal thought process Progress - PLAN OF CARE/RESULTS Progress/Plan/Lab Results: Vital Signs - 8 hr 07/04/19 16:31 07/04/19 18:50 Temperature 98.5 F 98 F Pulse Rate 75 75 Respiratory Rate 18 18 Blood Pressure 170/73 157/100 O2 Sat by Pulse Oximetry 96 96 Laboratory Results - last 24 hr 07/04/19 07/04/19 07/04/19 16:36 16:36 16:36 WBC RBC Hgb Hct MCV MCH MCHC RDW Std Deviation Plt Count MPV Immature Gran % (Auto) Neut % (Auto) Lymph % (Auto) [place] % (Auto) Eos % (Auto) Baso % (Auto) Immature Gran # (Auto) Neut # (Auto) Lymph # (Auto) [place] # (Auto) Eos # (Auto) Baso # (Auto) PT INR PTT (Actin FS) Sodium 139 Potassium 4.9 D Chloride 99 Carbon Dioxide 26 Anion Gap 14 BUN 16 Creatinine 1.1 Estimated GFR/1.73 m2 > 60 BUN/Creatinine Ratio 15 Glucose 198 H Calculated Osmolality 284 Calcium 10.1 Total Bilirubin 0.26 AST 22 ALT 22 Alkaline Phosphatase 76 Creatine Kinase 114 Troponin T High Sens 111 H* Saz-Y-Mnjtwazxonf Pept 1270 H Total Protein 7.5 Albumin 4.9 Globulin 2.6 Albumin/Globulin Ratio 1.9 07/04/19 07/04/19 16:36 16:36 WBC 11.35 H RBC 5.40 Hgb 15.7 Hct 45.8 MCV 84.8 MCH 29.1 MCHC 34.3 RDW Std Deviation 13.4 Plt Count 289 MPV 9.6 Immature Gran % (Auto) 0.2 Neut % (Auto) 70.8 Lymph % (Auto) 19.7 L [place] % (Auto) 6.9 Eos % (Auto) 1.9 Baso % (Auto) 0.5 Immature Gran # (Auto) 0.02 Neut # (Auto) 8.03 H Lymph # (Auto) 2.24 [place] # (Auto) 0.78 H Eos # (Auto) 0.22 Baso # (Auto) 0.06 PT 12.6 INR 0.93 PTT (Actin FS) 31.4 Sodium Potassium Chloride Carbon Dioxide Anion Gap BUN Creatinine Estimated GFR/1.73 m2 BUN/Creatinine Ratio Glucose Calculated Osmolality Calcium Total Bilirubin AST ALT Alkaline Phosphatase Creatine Kinase Troponin T High Sens [id number] Pept Total Protein Albumin Globulin Albumin/Globulin Ratio Orders Category Date Time Status Cardiac Monitoring DIRECTED Care 07/04/19 16:34 Active Saline Loc NOW Care 07/04/19 16:34 Active CHEST-2 VIEWS [RAD] Stat Exams 07/04/19 16:34 Completed CBC WITH ELECTRONIC DIFF [HEME] Stat Lab 07/04/19 16:36 Completed CK PROFILE [SP CHEM] Stat Lab 07/04/19 16:36 Completed COMPREHENSIVE METABOLIC PANEL [CHEM] Stat Lab 07/04/19 16:36 Completed PRO B-NATRIURETIC PEPTIDE Stat Lab 07/04/19 16:36 Completed PROTIME WITH INR [COAG] Stat Lab 07/04/19 16:36 Completed PTT [COAG] Stat Lab 07/04/19 16:36 Completed TROPONIN T HIGH SENSITIVITY Stat Lab 07/04/19 16:36 Completed TROPONIN T HIGH SENSITIVITY Stat Lab 07/04/19 19:01 Received Aspirin Med 07/04/19 16:33 Discontinued 325 mg PO NOW ONE CP/SOB/Palp >45 yrs of Age Stat Oth 07/04/19 16:33 Ordered EKG [EKG] Stat Ther 07/04/19 16:34 Draft Result Diagrams: 07/04/19 16:36 07/04/19 16:36 - REASSESSMENT Reassessment #1 Status: other (Pt with similar chest pain to previous admission. His original troponin was down trending, but subsequent troponin was elevated and there were some more pronounced T-wave inversions. The pateint was discussed with Dr. Escalante of cardiology who recomended admission to the hospitalist team. Discussed case with the hospitalist team who has accepted the patient.) Departure - Departure Date of Disposition Decision: 07/04/19 Time of Disposition Decision: 22:02 DIAGNOSIS: Elevated troponin Chest pain Qualifiers: Chest pain type: unspecified Qualified Code(s): R07.9 - Chest pain, unspecified Disposition: ADMITTED INPATIENT 09 Certified Medical Emergency: Emergent Condition: Fair Referrals and Follow-Ups: Lamont Ponce MD [Primary Care Provider] - - Critical Care Note This patient required my direct & personal management of CC.: No Attestation - Physician/ KAM[place] Attestation Patient care was provided by Advanced Practice Provider:: No The physician spent face to face time with patient:: Yes Advanced Practice Provider documentation review:: Supervising physician onsite and consulted in the evaluation and care of this patient. The physician did have a face to face encounter with the patient.
[2019-07-04] MEDS ORDERED: TYLENOL PO PRN (23:22)
[2019-07-04] MEDS ORDERED: ZOFRAN IV PRN (23:22)
[2019-07-04] MEDS ORDERED: MORPHINE IV PRN (23:22)
[2019-07-04] MEDS ORDERED: NITROGLYCERIN TOP PRN (23:23)
[2019-07-05] MEDS: COREG PO SCH ×3 (00:01→20:32)
[2019-07-05 03:54] LABS: AGAP 14; BUN 17 mg/dL (8-22); CALCIUM 9.9 mg/dL (8.8-10.2); CHLORIDE 101 mmol/L (98-107); COSMO 287; CREATININE 1.1 mg/dL (0.7-1.2); ESTIMATED GFR > 60; GLUCOSE 204 mg/dL (70-104); MAGNESIUM 1.7 mg/dL (1.5-2.7); SODIUM 140 mmol/L (136-145); TCO2 25 mmol/L (25-35)
--- NOTE | 2019-07-05 06:07 | HISTORY AND PHYSICAL ---
PRIMARY CARE PROVIDER: Lamont Ponce MD. DIRECTOR OF MUSIC THERAPY: Fox Youssef MD, at [facility]. DATE AND TIME: 07/04/2019 at 2215. CHIEF COMPLAINT: Chest pain. HISTORY OF PRESENT ILLNESS: Mr. England is a 74-year-old male who was just recently discharged from our facility yesterday, on July 02, after being admitted for chest pain. He was evaluated by Cardiology. He did have an echocardiogram, which did show ejection fraction 50%, as well as a myocardial perfusion scan which showed a large size defect in the anterior lateral, mainly fixed. He was diagnosed with a non-ST segment elevation myocardial infarction. It was noted that the patient does have coronary artery disease status post coronary artery bypass graft with abnormal stress test, though Cardiology, at the time that the reversibility was not significant enough to warrant any further evaluation. He was discharged to follow up with private secretary, Dr. Choudhury and Dr. Youssef. The patient states the day of discharge that he felt fine, though today he stated that intermittently throughout the day for a total of 5 episodes, the patient would begin to have left-sided chest pain which he described as sharp in nature. The patient states these episodes would come on, last approximately 15 minutes, and then would was subside on its own. He reported that these episodes, at times, it did radiate across his chest to his right chest, down his right arm. He stated that both of his arms felt very heavy. He also reported that another time it did radiate to his back. The patient did report that after 1 of his episodes that he did have an episode where he became nauseated, actually vomited, and was diaphoretic. Reportedly, he had been eating some chicken noodle soup and that his emesis was consistent with what he had just eaten. He denied any hematemesis or coffee-ground appearing emesis. The patient still is reporting mid left upper arm pain in the mid humerus area. The patient has been reporting this pain intermittently for the past month. 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 The patient has not had any radiology studies performed on this, we will go ahead and obtain a left humerus x- ray just to rule out any acute abnormalities given that he is still reporting continued pain. As previously mentioned in his most recent history and physical, the patient has been reporting that over the past few months that he has had increasing exertional dyspnea. Though, he states that this has not worsened recently. The day prior to arrival and at present, he denies any dizziness, feeling lightheaded, headache or shortness of breath. He denies any abdominal pain, diarrhea, or dysuria. Other than his left upper arm pain, he denies any other pain, numbness, tingling, or swelling in extremities. Upon my evaluation in the ER, the patient was not reporting chest pain at this present time. He was given a 325 mg p.o. aspirin upon arrival to the ER. The patient's EKG that was performed upon his arrival showed normal sinus rhythm with an ST and T-wave abnormality at a rate of 73, with a QTc of 458. Of note, when looking back in comparison to his most recent EKG prior to his recent discharge, there does not appear to be any new acute changes. There is some T- wave inversion in leads I, aVL and V2, which does appear to be present on his most recent EKG as well. Though his troponins are still elevated, initial was 111 with a repeat of 134. Given this, we will go ahead and admit the patient for further evaluation for his chest pain. REVIEW OF SYSTEMS: A 14-point review of systems was conducted with the patient and all were negative, except for pertinent positives mentioned in the above HPI. PAST MEDICAL HISTORY: 1. COPD. 2. Asthma. 3. History of BPH. 4. History of prostate cancer status post robotic prostatectomy. 5. Diabetes mellitus type 2. 6. Gastroesophageal reflux disease. 7. Coronary artery disease status post stent placement and 2 vessel coronary artery bypass graft approximately 21 years ago. 8. Hyperlipidemia. 9. History of kidney stones. PAST SURGICAL HISTORY: 1. Two-vessel coronary artery bypass graft approximately 21 years ago. 2. Radical robotic prostatectomy. 3. Lithotripsy. 4. Cholecystectomy. SOCIAL HISTORY: The patient is a former smoker, he quit smoking 20 years ago, though prior to this he did smoke 2 packs per day since he was in his 20s for a period of over 30 years. The patient did report some previous alcohol use on the weekends, and states he has not had any alcohol for quite some time. There is no known illicit drug use history. The patient is retired. FAMILY HISTORY: Positive for his mother having a history of multiple sclerosis. He is not aware of his father having any medical problems. The patient is a triplet. He does have 2 other sisters, 1 of which is living and the other who is , though from the patient's description, it sounded like this may have been secondary to noncompliance to her medical conditions. ALLERGIES: The patient did not report any allergies, though has been admitted for angioedema more than once in the past. The patient did previously take an KATHERIN inhibitor at the time of his admission for angioedema, but he reports he was not told that this was the cause of this. He also reported another severe allergic reaction to an unknown medication. HOME MEDICATIONS: 1. Pravastatin 80 mg p.o. daily. 2. Carvedilol 12.5 mg p.o. b.i.d. 3. Metformin 500 mg p.o. q.a.m. 4. Metformin 1000 mg p.o. at bedtime. 5. Amlodipine 5 mg p.o. q.a.m. 6. Aspirin 81 mg p.o. daily. 7. Trulicity 1 injection as directed once weekly. 8. Omeprazole 40 mg p.o. at bedtime. DIAGNOSTIC DATA/LABORATORY RESULTS: White blood cell count is 11,350, hemoglobin 15.7, hematocrit 45.8, platelet count is 289,000. PTT 12.6, INR 0.93, PTT is 31.4. Sodium 139, potassium 4.9, chloride 99, serum bicarb 26, BUN 16, creatinine 1.1 with GFR greater than 60. Glucose 198, calcium 10.1. Liver function tests within normal limits. CK 114, troponin initial was 111, with a repeat of 134. ProBNP is 1270. EKG shows normal sinus rhythm at a rate of 73, with an ST and T-wave abnormality. In comparison to his most recent EKG just prior to his recent discharge, there does not appear to be any acute changes. There is some T-wave inversion noted in lead I, aVL and V2, though this was present on his previous EKG. Chest x-ray showed no acute abnormalities. This is per radiology. Pending at this time is a left humeral x-ray. Upon my examination, there did not appear to be any acute abnormality, though we are awaiting radiologist impression as well. PHYSICAL EXAMINATION: VITAL SIGNS: Temperature 98 degrees, heart rate 75, respirations 16, blood pressure 144/75, oxygen saturation 96% on room air. GENERAL: Mr. England is a very pleasant, 74-year-old, male who is resting in the ER stretcher. He was in no acute distress. He was awake, alert, and able to answer questions appropriately. HEENT: Head is atraumatic, normocephalic. Pupils are equal, round, reactive to light, were 3 mm bilaterally and brisk. Oral mucosa is moist. Oropharynx is clear. NECK: Supple. Trachea midline. CARDIOVASCULAR: The patient has S1, S2 present. No murmurs, gallops, rubs appreciated. Regular rate and rhythm. PULMONARY: The patient has symmetrical chest expansion bilaterally. Lung sounds are clear to auscultation in bilateral full vazquez. ABDOMEN: Soft, nontender. Does not appear to be distended, though the patient does have a slightly protuberant abdomen noted. Bowel sounds are present in all 4 quadrants, are normoactive. EXTREMITIES: No cyanosis or edema noted. Pulse, motor, and sensory are intact in all extremities. Radial and pedal pulses are 2+ bilaterally. INTEGUMENTARY: The patient's skin is pink, warm, and dry. NEUROLOGICAL: The patient is alert and oriented to person, place, time, and situation. He does move all extremities. There are no focal neurological deficits noted. ASSESSMENT AND PLAN: 1. Chest pain. As mentioned above in HPI, the patient was just recently discharged. He did undergo echocardiogram, ejection fraction noted to be 50%, as well as a myocardial perfusion scan. It was noted to be an abnormal stress test. He did have a large size defect in the anterior lateral, this was mainly fixed. He was evaluated by Cardiology and Cardiology thought the reversibility was not enough to warrant any further evaluation. Given this, we will not order any further diagnostic studies at this time. We will leave this to the discretion of Cardiology. The patient was given 325 mg aspirin upon arrival to the ER. We will continue his regularly prescribed 80 mg aspirin daily. We will also continue his other regularly prescribed cardiac medications. We have added on p.r.n. nitroglycerin topical paste and morphine as needed. We will continue with the series of cardiac enzymes. Repeat EKG in the morning. He was placed on PVC unit for close monitoring, he will be on continuous cardiac telemetry and vital signs q.4 hours. The patient is not reporting any active chest pain at this time. We will await Cardiology's evaluation and further recommendations for management. 2. History of coronary artery disease, status post cardiac stent and CABG. We will continue treatment as mentioned above in above #1. 3. Hypertension. We will continue his Norvasc and Coreg. 4. Hyperlipidemia. We have continued his pravastatin. 5. Diabetes mellitus type 2. The patient will be NPO after midnight until he is evaluated by Cardiology. We will do pattern fingerstick blood sugars. We will place him on a sliding scale regular insulin per low-dose protocol. We will continue to follow. 6. History of chronic obstructive pulmonary disease. The patient is not reporting any acute respiratory symptoms at this time. He is not complaining of any shortness of breath at present. We will continue with supplemental oxygen as needed. 7. Left upper arm pain with reported injury 1 month ago. The patient has continued to have left upper mid arm pain in the mid humerus area. He actually reports that it feels like it is in a muscle and that this is a sore type pain. Given that the patient has continued reporting pain, we did go ahead and obtain a left humerus x-ray. It did not show any acute abnormality, though we are awaiting the radiologist's impression. We will continue to follow. 8. Deep vein thrombosis prophylaxis. He will be provided with sequential compression devices. The patient is a rate the patient will be placed in the PVC unit for close monitoring with continuous cardiac telemetry. We will do vital signs q.4 hours. Do strict intake and output. We will repeat a series of cardiac enzymes. We will also repeat a BMP in the morning. Further orders and recommendations pending hospital course, diagnostic studies, and physician evaluation. Dictated by ROSITA Breen for Boubacar Horner MD cc: MD Lamont Haley MD I have seen and examined Mr Gray today in the ER. was at the bedside. Mr England was discharged from the hospital after cardic workup and cardiology recommended he could be discharged and follow up with his private secretary. Unfortunately he continued to have chest pains on and off and his cardiac markers have gone up again. He will be admitted for NSTEMI and reconsult cardiology. I agree with the above HPI and have discussed the plan with the RAILROAD CONDUCTOR. I have also discussed my findings and plan with Mr England and his . BECKY
[2019-07-05] MEDS: HUMULIN R SUBQ SCH ×4 (07:00→20:33)
--- NOTE | 2019-07-05 07:39 | Diag Imaging Result Doc PS360 ---
EXAM: HUMERUS-LEFT 07/04/2019 HISTORY: Left upper arm pain/ poss. injury TECHNIQUE: Left humerus two views COMMENT: There is no evidence of fracture or dislocation. No other definite bony abnormalities are present. IMPRESSION: No acute bony abnormality. Electronically signed by Johnny Lino 07/05/2019 7:37 AM
--- NOTE | 2019-07-05 08:29 | EKG Report ---
Test Performed on : 07/05/2019 06:07:52 AM Test Reason : chest pain,elevated Troponin Blood Pressure : / mmHG Vent. Rate : 069 BPM Atrial Rate : 069 BPM P-R Int : 164 ms QRS Dur : 078 ms QT Int : 450 ms P-R-T Axes : 031 045 138 degrees QTc Int : 482 ms Normal sinus rhythm. T wave abnormality, consider lateral ischemia Prolonged QT Abnormal ECG No previous ECGs available Unconfirmed Result
[2019-07-05] MEDS ORDERED: NORVASC PO SCH (09:00)
[2019-07-05] MEDS ORDERED: ZYRTEC PO SCH (09:00)
[2019-07-05] MEDS ORDERED: VITAMIN B-12 PO SCH (09:00)
[2019-07-05] MEDS: ASPIRIN PO SCH (09:01)
[2019-07-05] MEDS ORDERED: LOVENOX SUBQ ONE (15:00)
--- NOTE | 2019-07-05 15:27 | CARDIOLOGY CONSULTATION ---
DATE: 07/05/2019 HISTORY OF PRESENT ILLNESS: Mr. England is a 74-year-old gentleman who was admitted with chest pain, underwent a stress test, and made follow-up appointments to follow up with Cardiology as an outpatient. He was admitted on 07/02 and discharged home. He was admitted with chest pain. Subsequently his myocardial perfusion scanning revealed a large-sized, fixed defect with a very small yrn-infarct ischemia. The fixed defect was noted in the anterior apical, anteroseptal, anterolateral area. The echocardiogram revealed an ejection fraction of 50% without any significant valvular disease. The patient was discharged home. However, after he went home, he has been having recurrent episodes of chest discomfort. Each episode he says lasts for about 15 to 20 minutes, starts with the left forearm and crosses his chest to both arms. He has severe discomfort, described as pressure-like sensation. He has had multiple episodes ongoing in the day and then finally he came to the emergency room and was admitted. His cardiac enzymes were abnormal when he was recently admitted and there is slight increase in his cardiac enzymes and his troponin. Troponin was elevated from 138 to 174. Sodium 140, potassium 4.0, BUN 17, creatinine 1.1. WBC was 11.35, RBC 5.4, hemoglobin 15.7, platelet count of 289,000. At the time of my examination patient was pain free. There is no history of palpitations. There is no dizziness or syncope associated with the chest discomfort. Patient had shortness of breath. REVIEW OF SYSTEM: A 14-point review of systems was done. GI System: There is no history of nausea, vomiting, diarrhea. There is no history of hematemesis or melena. Central nervous system: No focal weakness to suggest a CVA or TIA. Genitourinary System: There is no dysuria or hematuria. PAST MEDICAL HISTORY: 1. Coronary artery disease, coronary artery bypass grafting in 1994 in [place], received a vein graft to ramus, vein graft to PDA of the right coronary artery, and [place] to left anterior descending artery. 2. Diabetes. 3. Renal stones. 4. Hyperlipidemia. 5. Obstructive sleep apnea. 6. Uses a CPAP machine. PAST SURGICAL HISTORY: Prostatectomy, lithotripsy, and cholecystectomy. SOCIAL HISTORY: The patient is more than 55 years. Has 1 child. Is retired from the police department. FAMILY HISTORY: Positive for coronary artery disease. ALLERGIES: He is not known to be allergic to any medication. CURRENT MEDICATIONS: Include aspirin 81 mg a day, amlodipine 5 mg a day, Coreg 12.5 mg b.i.d. He has been started on Lovenox 1 mg/kg subcutaneous b.i.d., pravastatin 80 mg, omeprazole 40 mg. PHYSICAL EXAMINATION: Vital signs: On examination, blood pressure was 140/74. Cardiovascular System: Normal jugular venous pressure. There was no thyromegaly. There is no carotid bruit. First and second heart sounds were heard. There was no S3 gallop. Respiratory System: Normal air entry. There are no crepitations or rhonchi. Abdomen: Soft, obese, nontender. There was no guarding or rigidity. Bowel sounds were heard. Central nervous system: Alert and oriented. Was moving all 4 extremities. Extremities: Examination of extremities revealed no pedal edema. HEENT: Atraumatic, normocephalic. Pupils were equal and reacting to light. Neck: Jugular venous pressure was normal. There was no carotid bruit. There was no thyromegaly. ASSESSMENT AND PLAN: 1. Mr. Erik England is a 74-year-old gentleman with a history of coronary artery disease, coronary artery bypass grafting, diabetes, has come with increasing, recurrent episodes of chest discomfort with abnormal cardiac enzymes. Patient has non-Q-wave myocardial infarction. He had recent stress testing done which revealed a fixed defect with small yrn- infarct ischemia. However, given his ongoing symptoms, abnormal cardiac enzymes, I have recommended that he undergo a left heart catheterization. Risks, benefits, and alternatives were explained. Patient will be set up for left heart catheterization. Patient would like to be transferred to [facility] for the same. His hat sizer is in [place]. We will make arrangements for him to be transferred. Currently he is pain-free. He is on beta- blockers and we will also add Lovenox to his medical regimen. 2. Hypertension. Blood pressure is under control. I have not made any changes. He is on Coreg and amlodipine. 3. Diabetes. He takes metformin, Trulicity, and I have not made any changes. 4. Hyperlipidemia. He is on pravastatin. We will continue with the same medication. 5. Symptoms of gastroesophageal reflux disease, under control. He is on omeprazole. I have not made any changes. Thank you for the consult. We will follow hospital course. cc: Milo Escalante MD
[2019-07-05] MEDS: PRAVACHOL PO SCH ×2 (20:31)
[2019-07-05] MEDS: PRILOSEC PO SCH ×2 (20:32)
[2019-07-06] MEDS ORDERED: LOVENOX SUBQ SCH (03:00)
[2019-07-06 05:52] LABS: BASO# 0.06 X1000 (0.0-0.2); BASO% 0.6 % (0.0-0.8); EOS# 0.27 X1000 (0.0-0.7); EOS% 2.6 % (0.0-10.0); HEMATOCRIT 41.1 % (42.0-52.0); HEMOGLOBIN 14.2 g/dL (14.0-18.0); IMM GRAN# 0.02 X1000 (0.0-0.04); IMM GRAN% 0.2 % (0.0-0.5); LYMPH# 2.85 X1000 (1.2-3.4); LYMPH% 27.6 % (20.5-51.1); MCH 29.6 PG (27-31); MCHC 34.5 g/dL (33-37); MCV 85.6 FL (81-99); MONO# 1.12 X1000 (0.11-0.59); MONO% 10.9 % (1.7-9.3); MPV 9.9 FL (7.4-10.4); NEUT# 5.99 X1000 (1.4-6.5); NEUT% 58.1 % (42.2-75.2); PLT 240 X1000 (130-400); RDW 13.2 % (11.5-14.5); WBC 10.31 X1000 (4.8-10.8)
[2019-07-06 06:17] LABS: CALCIUM 9.2 mg/dL (8.8-10.2); CREATININE 1.3 mg/dL (0.7-1.2); POTASSIUM 4.1 mmol/L (3.5-5.1)
[2019-07-06] MEDS: HUMULIN R SUBQ SCH (06:31)
[2019-07-06 08:08] VITALS: BP 141/67
[2019-07-06] MEDS: ASPIRIN PO SCH (09:40)
--- NOTE | 2019-07-06 17:37 | DISCHARGE SUMMARY ---
ADMISSION DATE: 07/04/2019 DISCHARGE DATE: 07/06/2019 FINAL DISCHARGE DIAGNOSES: 1. Non ST-elevation myocardial infarction. 2. Hypertension. 3. Diabetes mellitus type 2. 4. Hyperlipidemia. 5. Gastroesophageal reflux disease. 6. Obesity. 7. Nephrolithiasis. 8. Obstructive sleep apnea. 9. Coronary artery disease status post coronary artery bypass graft. CONSULTATIONS: Cardiology consultation with Dr. Escalante. HOSPITAL COURSE: Mr. Muir is a 74-year-old male with an extensive cardiac history, who presented to the ER with a chief complaint of chest pain. The patient had just been discharged home on July 02 after being admitted for chest pain. During that hospitalization, he underwent a stress test and was told to follow up with his business analyst intern; however, the patient started to have chest pain again and came back to the hospital. On admission the patient was noted to have elevated cardiac markers. The patient was admitted to the hospitalist service and Cardiology was consulted. After discussion with the patient and his , the patient opted to be transferred to [facility] for further treatment and evaluation. DISPOSITION: The patient was transferred to [facility] on 07/06/2019. cc: Magnolia Crawley MD
== END 2019-07-06 09:20 | disposition short-term general hospital (02) | DRG 282 ==
LOC: ED 16:25 → SUATTDRO 22:57 → EDIPHOLD 22:57 → 2N 07-05 13:43
PROVIDERS: ATTEND Internal Medicine